=== PATIENT | male | born 1935 | race Two or more races ===

== ENCOUNTER 2018-01-22 07:23 | Emergency (ER) | payer SELFPAY ==
[~2018-01-22] VITALS: Ht 165.1 cm; Wt 66.0 kg
[2018-01-22 08:22] LABS: HEMATOCRIT 40.2 % (38.0-50.0); HEMOGLOBIN 13.5 G/DL (12.5-16.6); MCH 32.1 PG (29.0-34.0); MCHC 33.6 G/DL (30.0-36.0); MCV 95.7 FL (86-99); PLATELET COUNT 216 K/uL (156-360); RBC DIS.WIDTH-CV 13.1 % (11.8-14.6); RBC DIS.WIDTH-SD 46.2 % (39-53); WHITE BLOOD COUNT 9.1 K/uL (4.1-10.2)
[2018-01-22 08:44] LABS: CHLORIDE 104 mEq/L (99-109); POTASSIUM 4.2 mEq/L (3.7-5.4); SODIUM 141 mEq/L (136-147)
[2018-01-22 08:46] LABS: GLUCOSE 120 mg/dL (70-99)
[2018-01-22 08:49] LABS: SERUM ETHYL ALCOHOL < 10 mg/dL
[2018-01-22 08:50] LABS: CREATININE 0.8 mg/dL (0.6-1.3); GFR ESTIMATE (CALCULATED) > 59 mL/min/ (58.99-99999)
[2018-01-22 08:51] LABS: UREA NITROGEN (BUN) 15 mg/dL (9-23)
[2018-01-22 09:43] LABS: TROP-I INTERPRETATION NEGATIVE; TROPONIN-I < 0.01 ng/mL (0.0-0.30)
[2018-01-22 09:46] LABS: APPEARANCE CLEAR ((CLEAR)); BILIRUBIN NEGATIVE; BLOOD NEGATIVE; COLOR YELLOW ((YELLOW)); GLUCOSE (STRIP) NEGATIVE; KETONES NEGATIVE; LEUKOCYTES NEGATIVE; NITRITE NEGATIVE; PROTEIN (STRIP) NEGATIVE; SPECIFIC GRAVITY 1.018 (1.000-1.030); UROBILINOGEN 0.2 MG/DL (0.2-1.0)
[2018-01-22 09:55] LABS: AMPHETAMINE NEGATIVE (500 ng/mL); BARBITURATES NEGATIVE (200 ng/mL); BENZODIAZEPINES NEGATIVE (150 ng/mL); BUPRENORPHINE NEGATIVE (10 ng/mL); COCAINE NEGATIVE (150 ng/mL); METHADONE NEGATIVE (200 ng/mL); METHAMPHETAMINE NEGATIVE (500 ng/mL); OPIATES (MORPHINE) NEGATIVE (100 ng/mL); OXYCODONE NEGATIVE (100 ng/mL); PHENCYCLIDINE NEGATIVE (25 ng/mL); PROPOXYPHENE NEGATIVE (300 ng/mL); THC CANNABINOIDS NEGATIVE (50 ng/mL); TRICYCLIC ANTIDEPRESSANTS NEGATIVE (300 ng/mL)
[2018-01-22 11:45] VITALS: BP 148/62
== END 2018-01-22 12:07 | disposition home or self-care (01) ==
LOC: EME 07:23 → EDBD 07:23 → EME 12:07
PROVIDERS: Nurse Practitioner Family
DX: F03.90 Unspecified dementia, unspecified severity, without behavioral disturbance, psychotic disturbance, mood disturbance, and anxiety (principal)
CPT/HCPCS: 70450; 80048; 81003; 82140; 84484; 85027; 93005; 99281; 99285; G0480